=== PATIENT | male | born 2000 | race Asian ===

== ENCOUNTER 2025-08-06 20:05 | Emergency (ER) | payer SELFPAY ==
[~2025-08-06] VITALS: Ht 165.1 cm; Wt 81.8 kg
[2025-08-06 20:17] VITALS: BP 139/96; PULSE 76; RESP 18; TEMP 98.4; O2SAT 100
[2025-08-06 21:09] LABS: PLATELET COUNT (AUTO) 303 K/uL (150-450); RED BLOOD CELL COUNT(AUTO) 5.49 MIL/uL (4.50-5.90); RED CELL DISTRIBUTION WIDTH 12.3 % (11.5-14.5); WHITE BLOOD COUNT (AUTO) 9.7 K/uL (4.5-11.0)
[2025-08-06 21:17] LABS: CALCIUM, TOTAL 9.4 mg/dL (8.8-10.5); CREATININE 1.08 mg/dL (0.60-1.30); GLOMERULAR FILTR. RATE CALC > 60 mL/min (>60); GLUCOSE,RANDOM 109 mg/dL (70-110); SODIUM SERUM 137 mmol/L (136-145); UREA NITROGEN, BLOOD 14 mg/dL (7-18)
[2025-08-06 21:26] LABS: ASPARTATE AMINOTRANSFERASE 22.0 U/L (15-37); TOTAL PROTEIN, SERUM 8.4 g/dL (6.4-8.2)
[2025-08-06 23:14] LABS: APPEARANCE,URINE CLEAR (CLEAR); GLUCOSE, URINE (UA) NEGATIVE (NEGATIVE); LEUKOCYTE ESTERASE ,URINE NEGATIVE (NEGATIVE); NITRATE,URINE NEGATIVE (NEGATIVE); OCCULT BLOOD,URINE LARGE (NEGATIVE); SPECIFIC GRAVITIY, URINE 1.010 (1.003-1.030)
[2025-08-06 23:24] LABS: SQUAMOUS EPITHELIAL CELL,UR Rare /LPF (None Seen)
[2025-08-07] MEDS ORDERED: ONDA-104 PO (00:13)
[2025-08-07] MEDS ORDERED: TAMS0.4C94 PO (00:13)
== END 2025-08-07 00:24 | disposition home or self-care (01) ==
LOC: EMS 20:05
DX: R10.A2 Flank pain, left side (principal)
CPT/HCPCS: 80048; 80076; 81001; 83690; 85025; 99283